=== PATIENT | female | born 1995 | race African-American/Black ===

== ENCOUNTER 2019-11-12 08:39 | Emergency (ER) | payer OTHER, SELFPAY ==
[2019-11-12 08:52] VITALS: BP 121/77; PULSE 88; RESP 16; TEMP 36.7; O2SAT 99
--- NOTE | 2019-11-12 08:55 | ED.URI ---
HPI - URI/Sore Throat General Chief Complaint: Upper Respiratory Infection Stated Complaint: Sore throat Time Seen by Provider: 11/12/19 08:55 Source: patient and RN notes reviewed History of Present Illness HPI Narrative: Patient is a 24-year-old female presents the urgent care with complaints of stuffy nose, nasal congestion, rhinorrhea, mild cough, fever. Patient states her symptoms started 5 days ago and she has been treating her symptoms with DayQuil, NyQuil, Tylenol, Kirsten-Eden. Patient states she is not getting any relief with the exception of fever reduction. Patient states her kids were both diagnosed with flu a 11 days ago. Patient is requesting to be tested for both flu and strep. No other acute complaints. No acute distress noted. Patient read the plan of care. Related Data Home Medications Medication Instructions Recorded Confirmed No Home Medications 11/12/19 11/12/19 Allergies Allergy/AdvReac Type Severity Reaction Status Date / Time nitrofurantoin Allergy Unknown Verified 11/12/19 08:56 [From Macrobid] Review of Systems Review of Systems: Narrative: CONSTITUTIONAL: Reports a fever EYES: Denies visual changes, redness, or discharge. ENT: Reports of nasal congestion and rhinorrhea CARDIOVASCULAR: Denies chest pain, palpitations, or edema. RESPIRATORY: Ports of intermittent productive cough without dyspnea GASTROINTESTINAL: Denies abdominal pain, nausea, vomiting, or diarrhea. GENITOURINARY: Denies dysuria or hematuria. SKIN: Denies rash or itching. MUSCULOSKELETAL: Denies back pain, joint pain, or myalgia. NEUROLOGIC: Denies headache, numbness, or weakness. FOR[facility]LY [facility] Social History Social History Gender identity (if verbalized by the patient): Female Comments At the time of my signature, I reviewed and agree with the nursing past medical, surgical, social, and family history. There is no relevant family history pertinent to the patient complaint. Exam Narrative: Exam Narrative: GENERAL: This is a well-nourished, well-developed patient, in no apparent distress. HEAD: normocephalic, atraumatic. EYES: PERRL. Sclera clear/white. Vision is grossly intact. EARS: External ears normal, auditory canals clear and without drainage, TMs normal without perforation. Hearing grossly intact. NOSE: External nose normal with no obvious nasal discharge, nares without redness, clear rhinorrhea. THROAT: Mucous membranes moist, posterior pharynx clear. Moderate postnasal drainage NECK: Neck supple, non-tender without lymphadenopathy CARDIOVASCULAR: Regular rate and rhythm without murmurs, gallops, or rubs. RESPIRATORY: Clear to auscultation. Breath sounds equal bilaterally. No wheezes, rales, or rhonchi. SKIN: warm, intact with no suspicious lesions or rash, good texture and turgor. NEURO: awake, alert, and oriented to person, place and time. There were no obvious focal neurologic abnormalities. EXTREMITIES: No clubbing, cyanosis, or edema. Course Vital Signs Vital signs: Vital Signs Temperature 98.0 F 11/12/19 08:52 Pulse Rate 88 11/12/19 08:52 Respiratory Rate 16 11/12/19 08:52 Blood Pressure 121/77 11/12/19 08:52 Pulse Oximetry 99 11/12/19 08:52 Temperature 98.0 F 11/12/19 08:52 Pulse Rate 88 11/12/19 08:52 Respiratory Rate 16 11/12/19 08:52 Blood Pressure 121/77 11/12/19 08:52 Pulse Oximetry 99 11/12/19 08:52 Reviewed MDM - URI/Sore Throat MDM Narrative Medical decision making narrative: Reviewed lab results with the patient. She is aware that flu and strep swab were negative. Educated patient on strep culture we will call within 72 hours of cultures positive and antibiotics are necessary. Advised the patient continue using [id number] medication as needed for symptoms such as an antihistamine (Claritin, Zyrtec), Flonase nasal spray, Tylenol, ibuprofen. Increase water intake and rest. Use humidifier at night. Follow-up with PCP within 2 to 5 days or
== END 2019-11-12 09:22 | disposition home or self-care (01) ==
PROVIDERS: Emergency Provider Nurse Practitioner Family
DX: J06.9 Acute upper respiratory infection, unspecified (principal)
CPT/HCPCS: 87081; 87804; 87880; 99203; G0463

== ENCOUNTER 2020-07-12 18:58 | Emergency (ER) | payer OTHER, SELFPAY ==
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
[2020-07-12 19:27] VITALS: BP 120/72; PULSE 89; RESP 17; TEMP 36.7; O2SAT 100
[2020-07-12 20:06] VITALS: BP 120/72; PULSE 89; RESP 99; TEMP 36.6; O2SAT 100
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
[2020-07-12 22:32] VITALS: BP 117/73; PULSE 79; RESP 16; O2SAT 100
== END 2020-07-12 22:34 | disposition home or self-care (01) ==
PROVIDERS: Emergency Provider Emergency Medicine
DX: O9A.212 Injury, poisoning and certain other consequences of external causes complicating pregnancy, second trimester (principal); S16.1XXS Strain of muscle, fascia and tendon at neck level, sequela; Z3A.15 15 weeks gestation of pregnancy; V49.40XA Driver injured in collision with unspecified motor vehicles in traffic accident, initial encounter
CPT/HCPCS: 70450; 72125; 99284